=== PATIENT | female | born 1945 | race Caucasian/White ===

== ENCOUNTER 2021-08-16 15:28 | Inpatient (IN) | payer MEDICARE ==
[~2021-08-16] VITALS: Ht 162.6 cm; Wt 113.4 kg
[2021-08-16 15:29] VITALS: BP 115/46
[2021-08-16] MEDS ORDERED: ALLOPURINOL 10100 M1 PO (15:32)
[2021-08-16] MEDS ORDERED: ADVAIR 250-501 EACH INH (15:32)
[2021-08-16] MEDS ORDERED: FLONASE 0.05%50 MCG NASAL (15:33)
[2021-08-16] MEDS ORDERED: BUMETANIDE 1 MG1 M1 PO (15:33)
[2021-08-16] MEDS ORDERED: CLARITIN10 M2 PO (15:33)
[2021-08-16] MEDS ORDERED: CARVEDILOL12.5 MG PO (15:33)
[2021-08-16] MEDS ORDERED: COZAAR 25 MG TA25 M1 PO (15:34)
[2021-08-16] MEDS ORDERED: ED-SPAZ0.125 MG PO (15:34)
[2021-08-16] MEDS ORDERED: MIRTAZAPINE15 M2 PO (15:34)
[2021-08-16] MEDS ORDERED: NEURONTIN 400M400 M2 PO (15:34)
[2021-08-16] MEDS ORDERED: VITAMIN D310 MC2 PO (15:35)
[2021-08-16] MEDS ORDERED: PILOCARPINE HCL5 M1 PO (15:35)
[2021-08-16] MEDS ORDERED: VITAMIN B122500 MC1 PO (15:35)
[2021-08-16 16:05] LABS: INFLUENZA A ANTIGEN Negative (Negative); INFLUENZA B ANTIGEN Negative (Negative)
[2021-08-16 17:05] LABS: HEMATOCRIT 40.8 % (37.0-47.0); HEMOGLOBIN 13.6 gm/dL (12.0-15.0); MCH 27.1 pg (26.0-34.0); MCHC 33.3 g/dL (28.0-37.0); MCV 81.2 fL (80.0-100.0); MPV 7.4 fl. (7.2-11.1); NUCLEATED RBCS 0 /100WBC; PLATELET COUNT* 176 thou/uL (150-400); RBC 5.02 mil/uL (4.20-5.00); RDW-CV 15.5 % (10.5-14.5); WBC 13.3 thou/uL (4.0-11.0)
[2021-08-16 17:14] LABS: CALCIUM 8.6 mg/dL (8.5-10.1); CREATININE 1.9 mg/dL (0.6-1.3); POTASSIUM 3.4 mmol/L (3.5-5.1)
[2021-08-16 17:24] LABS: ALBUMIN 3.1 g/dL (3.4-5.0); TOTAL BILIRUBIN 0.9 mg/dL (<0.1-1.0); TOTAL PROTEIN 6.6 g/dL (6.4-8.2)
[2021-08-16 17:35] LABS: ABSOLUTE LYMPHOCYTES 0.7 thou/uL (0.8-5.3); ABSOLUTE MONOCYTES 0.4 thou/uL (0.0-1.2); ABSOLUTE NEUTROPHILS 12.2 thou/uL (1.6-8.1); PLATELET ESTIMATE ADEQUATE
[2021-08-16 18:11] LABS: URINE BLOOD NEGATIVE (Negative); URINE COLOR YELLOW; URINE GLUCOSE-RANDOM NEGATIVE (Negative); URINE KETONES TRACE (Negative); URINE LEUKOCYTES TRACE (Negative); URINE NITRITE NEGATIVE (Negative); URINE PROTEIN 1+ (Negative); URINE SPECIFIC GRAVITY 1.025 (1.005-1.030); URINE UROBILINOGEN 0.2 E.U./dl (0.2-1.0)
[2021-08-16 18:23] LABS: ICTOTEST (BILI CONFIRMATORY) Negative (Negative); URINE BILIRUBIN 1+ (Negative); URINE CLARITY CLOUDY
[2021-08-16 18:25] LABS: BACTERIA 1-9 Few /HPF (None Seen); CRYSTALS None Seen /LPF (None Seen); HYALINE CASTS 0-3 Few /LPF (None Seen); MUCUS 0-3 Light strn/LPF (None Seen); SQUAMOUS 4-10 Moderate /LPF (0-3); URINE RBC None Seen /HPF (0-2); URINE WBC 6-15 Few /HPF (0-5)
[2021-08-16 22:00] VITALS: BP 104/52
[2021-08-17] VITALS: BP 107/50
[2021-08-17 04:00] VITALS: BP 119/62
[2021-08-17 05:51] LABS: ABSOLUTE LYMPHOCYTES 0.5 thou/uL (0.8-5.3); ABSOLUTE MONOCYTES 0.2 thou/uL (0.0-1.2); ABSOLUTE NEUTROPHILS 8.9 thou/uL (1.6-8.1); BASOPHILS 0.1 %; HEMATOCRIT 39.6 % (37.0-47.0); HEMOGLOBIN 13.2 gm/dL (12.0-15.0); LYMPHOCYTES 5.2 %; MCHC 33.3 g/dL (28.0-37.0); MONOCYTES 1.9 %; MPV 7.9 fl. (7.2-11.1); NUCLEATED RBCS 0 /100WBC; PLATELET COUNT* 160 thou/uL (150-400); POLYS 92.8 %; RDW-CV 15.2 % (10.5-14.5); WBC 9.6 thou/uL (4.0-11.0)
[2021-08-17 06:00] LABS: CALCIUM 8.8 mg/dL (8.5-10.1); CREATININE 1.8 mg/dL (0.6-1.3); POTASSIUM 3.4 mmol/L (3.5-5.1)
[2021-08-17 08:25] VITALS: BP 142/58
[2021-08-17 12:00] VITALS: BP 132/74
--- NOTE | 2021-08-17 13:12 | 2DMMODE ---
[place] [address] 2 D/M-MODE ECHOCARDIOGRAM Name: SAMI JACINTO Room: [address] IN R#: [id number] Admission: 08/16/21 Attend Phys: Barrera Abdullahi, Discharge: Date of : 47 Date of Service: 08/17/21 1311 Report #: [id number] THIS REPORT FOR: cc: Bebo Wang MD, Tuongvan T. MD Holkins, John M. MD [facility] ~ APPROVED REPORT Study performed: 08/17/2021 11:03:56 EXAM: Comprehensive 2D, Doppler, and color-flow Echocardiogram Patient Location: In-Patient Room #: [employer] Status: routine BSA: 2.13 HR: 63 bpm BP: 142/58 mmHg Rhythm: NSR Other Information Study Quality: Good Indications Dyspnea 2D Dimensions IVSd: 11.17 (7-11mm) LVOT Diam: 18.77 (18-24mm) LVDd: 48.50 mm PWd: 10.45 (7-11mm) Ascending Ao: 39.68 (22-36mm) LVDs: 29.56 (25-40mm) Aortic Root: 30.58 mm Volumes Left Atrial Volume (Systole) LA ESV Index: 18.10 mL/m2 Aortic Valve AoV Peak Yang.: 1.94 m/s AO Peak Gr.: 15.11 mmHg LVOT Max P.12 mmHg AO Mean Gr.: 7.98 mmHg LVOT Mean P.78 mmHg LVOT Max V: 1.59 m/s AO V2 VTI: 42.28 cm LVOT Mean V: 0.98 m/s ROMI (VTI): 2.49 cm2 LVOT V1 VTI: 38.07 [place] [address] 2 D/M-MODE ECHOCARDIOGRAM Name: SAMI JACINTO Room: [address] IN .R.#: [id number] Admission: 08/16/21 Attend Phys: Barrera Abdullahi, Discharge: Date of : 47 Date of Service: 08/17/21 1311 Report #: [id number] Mitral Valve E/A Ratio: 0.76 MV Decel. Time: 279.71 ms MV E Max Yang.: 0.95 m/s MV PHT: 81.12 ms MVA (PHT): 2.71 cm2 TDI E/Lateral E': 13.57 E/Medial E': 11.88 Medial E' Yang.: 0.08 m/s Lateral E' Yang.: 0.07 m/s Pulmonary Valve PV Peak Yang.: 1.12 m/s PV Peak Gr.: 5.00 mmHg Left Ventricle The left ventricle is normal size. There is normal LV segmental wall motion. There is normal left ventricular wall thickness. Left ventricular systolic function is normal. The left ventricular ejection fraction is within the normal range. LVEF is 60-65%. Grade I - abnormal relaxation pattern. Right Ventricle The right ventricle is normal size. The right ventricular systolic function is normal. Atria The left atrium size is normal. The right atrium size is normal. Aortic Valve The aortic valve is normal in structure. Trace aortic regurgitation. There is no aortic valvular stenosis. Mitral Valve The mitral valve is normal in structure. There is no mitral valve regurgitation noted. No evidence of mitral valve stenosis. Tricuspid Valve The tricuspid valve is normal in structure. Trace tricuspid regurgitation. Unable to assess PA pressure. Pulmonic Valve The pulmonary valve is normal in structure. There is no [place]mon[place] [address] 2 D/M-MODE ECHOCARDIOGRAM Name: SAMI JACINTO Jens Room: [address] IN [facility]#: [id number] Admission: 08/16/21 Attend Phys: Barrera Abdullahi, Discharge: Date of : 47 Date of Service: 08/17/21 1311 Report #: [id number] Great Vessels The aortic root is normal in size. IVC is normal in size and collapses >50% with inspiration. Pericardium There is no pericardial effusion. <Conclusion> The left ventricle is normal size. There is normal left ventricular wall thickness. Left ventricular systolic function is normal. The left ventricular ejection fraction is within the normal range. LVEF is 60-65%. Grade I - abnormal relaxation pattern. The right ventricle is normal size. The left atrium size is normal. The aortic valve is normal in structure. Trace aortic regurgitation. There is no aortic valvular stenosis. The mitral valve is normal in structure. The tricuspid valve is normal in structure. IVC is normal in size and collapses >50% with inspiration. There is no pericardial effusion. There is normal LV segmental wall motion. <ELECTRONICALLY SIGNED> By: Robel Garibay MD, FACC 08/17/211310 10 10 Robel Garibay MD, FACC /INF
[2021-08-17 19:40] VITALS: BP 110/68
[2021-08-18 00:42] VITALS: BP 146/76
[2021-08-18 04:40] VITALS: BP 149/72
[2021-08-18 08:00] VITALS: BP 137/76
[2021-08-18 09:47] LABS: HEMATOCRIT 41.6 % (37.0-47.0); HEMOGLOBIN 13.5 gm/dL (12.0-15.0); MCH 26.8 pg (26.0-34.0); MCHC 32.5 g/dL (28.0-37.0); MCV 82.3 fL (80.0-100.0); MPV 7.8 fl. (7.2-11.1); RBC 5.05 mil/uL (4.20-5.00); RDW-CV 15.8 % (10.5-14.5); WBC 9.5 thou/uL (4.0-11.0)
[2021-08-18 10:19] LABS: ALBUMIN 2.8 g/dL (3.4-5.0); CALCIUM 8.8 mg/dL (8.5-10.1); CREATININE 1.8 mg/dL (0.6-1.3); MAGNESIUM 2.4 mg/dL (1.8-2.4); PHOSPHORUS* 4.4 mg/dL (2.5-4.9); POTASSIUM 3.5 mmol/L (3.5-5.1); TOTAL BILIRUBIN 0.4 mg/dL (<0.1-1.0); TOTAL PROTEIN 6.8 g/dL (6.4-8.2)
[2021-08-18 11:56] VITALS: BP 141/68
[2021-08-18 12:10] LABS: HEMATOCRIT 40.8 % (37.0-47.0); HEMOGLOBIN 13.5 gm/dL (12.0-15.0); MCH 27.1 pg (26.0-34.0); MCHC 33.1 g/dL (28.0-37.0); MCV 81.9 fL (80.0-100.0); MPV 8.2 fl. (7.2-11.1); NUCLEATED RBCS 0 /100WBC; PLATELET COUNT* 217 thou/uL (150-400); RBC 4.99 mil/uL (4.20-5.00); RDW-CV 15.6 % (10.5-14.5); WBC 9.6 thou/uL (4.0-11.0)
[2021-08-18 12:45] LABS: ABSOLUTE LYMPHOCYTES 0.3 thou/uL (0.8-5.3); ABSOLUTE MONOCYTES 0.2 thou/uL (0.0-1.2); ABSOLUTE NEUTROPHILS 9.1 thou/uL (1.6-8.1); PLATELET ESTIMATE ADEQUATE
[2021-08-18 15:56] VITALS: BP 136/59
[2021-08-18 20:00] VITALS: BP 160/85
[2021-08-19] VITALS: BP 152/73
[2021-08-19 04:00] VITALS: BP 162/72
[2021-08-19 08:01] VITALS: BP 141/69
[2021-08-19] MEDS ORDERED: MUCUS RLF DM E1 EACH PO (11:04)
[2021-08-19] MEDS ORDERED: DECADRON6 MG PO (11:04)
[2021-08-19] MEDS ORDERED: TESSALON PERLE100 MG PO (11:04)
[2021-08-19 11:10] VITALS: BP 128/55; BP 98/46
[2021-08-19 12:48] VITALS: BP 128/55
--- NOTE | 2021-08-20 22:53 | CON ---
[address] [address] CONSULTATION Name: SAMI JACINTO Jens Room: [address] IN M.R.#: [id number] Admission: 08/16/21 Attend Phys: Barrera Abdullahi MD Discharge: 08/19/21 Date of : 47 Report #: [id number] THIS REPORT FOR: cc: Bebo Wang MD, Tuongvan T. MD Pervez, Adeel MD ~ DATE OF CONSULTATION: 08/17/2021 CONSULT HAS BEEN REQUESTED BY: Eder Karimi DO. INDICATION FOR CONSULTATION: COVID-19. HISTORY OF PRESENT ILLNESS: This is a 76-year-old female. Past medical history include a history of obstructive sleep apnea. She is on a CPAP at home and has a history of morbid obesity. The patient also has chronic renal failure. She states that her creatinine is 1.8. However, I do not have documentation of this. She also does have bronchial asthma. The patient is vaccinated with 2 doses of COVID-19 vaccine several months ago. She is still admitted here with COVID. Recently, she has received prednisone in addition to Tessalon Perles and doxycycline as an outpatient. The patient; however, had increasing shortness of breath as well as a dry cough and fever; therefore, eventually came to our hospital's Emergency Room. She does report having had nasal discharge recently. No sore throat. She has swelling of lower extremities, but does not report that this has changed recently. She has had some sleep disturbances and daytime sleepiness. This is not significantly different compared with her baseline. REVIEW OF SYSTEMS: Negative for 12 points except as mentioned above. PAST MEDICAL HISTORY: Morbid obesity, body mass index 43. Obstructive sleep apnea, on a CPAP at home long-term. Bronchial asthma, takes Advair and albuterol at home. Chronic renal insufficiency. The patient states that her creatinine at baseline is 1.8, which is the creatinine now as well. I do not however have documentation of this. Heart murmur. PAST SURGICAL HISTORY: Tonsillectomy, deviated septum surgery, UPPP for sleep apnea, cholecystectomy. The patient has just had an echocardiogram performed shows a left ventricular ejection fraction of 60-65%. Pulmonary artery systolic is not elevated. SOCIAL HISTORY: Lifetime nonsmoker. No known history of heavy alcohol use [place] [address] CONSULTATION Name: MAGGYSAMI WILSON Room: [address]#: [id number] Admission: 08/16/21 Attend Phys: Barrera Abdullahi MD Discharge: 08/19/21 Date of : 47 Report #: [id number] CURRENT MEDICATIONS: List in Submittable reviewed. HOME MEDICATIONS: List in [employer] reviewed. Also, see discussion above. ALLERGIES: THE LIST IN [place] IS REVIEWED. I AM CERTAIN IF THE PATIENT IN FACT IS ALLERGIC TO ALL OF THESE MEDICATIONS, FOR EXAMPLE TETRACYCLINE IS MENTIONED AN ALLERGY; HOWEVER, THE PATIENT RECENTLY REPORTS HAVING RECEIVED DOXYCYCLINE. SHE IS ALSO REPORTED TO HAVE HAD AN ALLERGY TO PENICILLIN AND TO ERYTHROMYCIN AND REPORTED TO HAVE HAD AN ADVERSE REACTION TO EPINEPHRINE. PHYSICAL EXAMINATION: GENERAL: She is alert, awake and oriented. She did appear to have shortness of breath at rest. She is constantly coughing while I was talking to her and therefore had difficulty talking in full sentences. VITAL SIGNS: She is; however, saturating 91%. She is not on supplemental oxygen. Has a pulse of 70 and a blood pressure of 132/74. The respiratory rate was around 18-19. She is afebrile with a temperature of 36.3. HEENT: Head is normocephalic and atraumatic. NECK: Does not show raised JVP. CHEST: Breath sounds are bilaterally equal, decreased, expirations are prolonged. HEART: Regular. There is no murmur. ABDOMEN: Soft and nontender. EXTREMITIES: Lower extremities, 1+ edema bilaterally. SKIN: Dry and intact. NEUROLOGIC: No focal deficit. LABORATORY DATA: The patient's chest x-ray done yesterday showed bilateral infiltrate consistent with COVID-19 is reviewed. V/Q scan performed today is low probability. Lab work in [facility] reviewed. ASSESSMENT AND PLAN: 1. COVID-19. She is currently ordered dexamethasone at 10 mg b.i.d. While for COVID alone, I may have to consider cutting back the dose of dexamethasone. The patient does appear to have a component of bronchospasm as well. Therefore, for now, it appears reasonable to continue the current dose. If she improves, then I would have a low threshold of tapering dexamethasone. Recommend starting remdesivir. Note that in patients who are not on supplemental oxygen, but admitted to the hospital, there is significant evidence in the literature of reduction in length of stay with remdesivir. Also, the patient is at a fairly high risk for progression due to the extensive infiltrates seen on the chest x-ray as well as her comorbid conditions. Follow LFTs while on remdesivir, also follow creatinine. 2. Obstructive sleep apnea, on CPAP long-term. The patient instructed to not [address] [place] [address] CONSULTATION Name: SAMI JACINTO Room: [address]#: [id number] Admission: 08/16/21 Attend Phys: Barrera Abdullahi MD Discharge: 08/19/21 Date of : 47 Report #: [id number] sleep supine. 3. Asthma exacerbation, dexamethasone at 10 b.i.d. as above, also on DuoNebs and I agree with the same. We will order an insulin sliding scale as I would expect an increase in glucoses. 4. Pulmonary infiltrates. Note, the patient received doxycycline as an outpatient recently. I agree with Levaquin as currently prescribed. There is a reported history of ALLERGY TO PENICILLIN; however, as above, it is not fully apparent to me whether this information is correct. Recommend obtaining a sputum for culture and nasal swab for methicillin-resistant Staphylococcus aureus. 5. Chronic renal insufficiency/fluid and electrolytes. The patient is on Bumex. She is also on 50 mL of normal saline. Overall, she appears to be mildly fluid overloaded. The patient states her creatinine is 1.8, which is the creatinine now. I do not have documentation of this though. For now, I elected to discontinue saline, continued with Bumex. Recommend following fluid status as well as creatinine and adjusting as indicated. 6. Edema of lower extremity. V/Q scan is low probability. I recommend obtaining venous Dopplers as well. 7. Rule out urinary tract obstruction. Recommend obtaining a renal ultrasound. 8. Deep venous thrombosis prophylaxis, Lovenox. 9. Gastrointestinal prophylaxis, Protonix. 10. Clostridium difficile prophylaxis, Lactinex. 11. Hypokalemia. I ordered 40 of potassium chloride. Recommend following potassium level, also added a magnesium to this morning's labs, which is normal. Thanks for this consultation. <ELECTRONICALLY SIGNED> By: Sahil Robles MD 08/20/21 2253 1817 2019Sahil Robles MD /nt
== END 2021-08-19 16:20 | disposition home health service (06) | DRG 177 ==
LOC: M.ERS 15:28 → M.TBA-ER 17:38 → M.ORTHSURG 17:38
PROVIDERS: Internal Medicine; Internal Medicine Critical Care Medicine; Physician Assistant; ADMIT Internal Medicine; ATTEND Internal Medicine
PROC: 5A09357 Assistance with Respiratory Ventilation, Less than 24 Consecutive Hours, Continuous Positive Airway Pressure (ICD-10-PCS; principal; 2021-08-16)
PROC: 05HA33Z Insertion of Infusion Device into Left Brachial Vein, Percutaneous Approach (ICD-10-PCS; 2021-08-17)
PROC: 5A09457 Assistance with Respiratory Ventilation, 24-96 Consecutive Hours, Continuous Positive Airway Pressure (ICD-10-PCS; 2021-08-17)
PROC: XW033E5 Introduction of Remdesivir Anti-infective into Peripheral Vein, Percutaneous Approach, New Technology Group 5 (ICD-10-PCS; 2021-08-17)
DX: U07.1 COVID-19 (principal); I50.31 Acute diastolic (congestive) heart failure; J96.01 Acute respiratory failure with hypoxia; J12.82 Pneumonia due to coronavirus disease 2019; J45.901 Unspecified asthma with (acute) exacerbation; N18.4 Chronic kidney disease, stage 4 (severe); Z68.41 Body mass index [BMI] 40.0-44.9, adult; I13.0 Hypertensive heart and chronic kidney disease with heart failure and stage 1 through stage 4 chronic kidney disease, or unspecified chronic kidney disease; G47.33 Obstructive sleep apnea (adult) (pediatric); E66.01 Morbid (severe) obesity due to excess calories; E87.6 Hypokalemia; J32.9 Chronic sinusitis, unspecified; B96.89 Other specified bacterial agents as the cause of diseases classified elsewhere; J31.0 Chronic rhinitis; Z90.49 Acquired absence of other specified parts of digestive tract; Z88.6 Allergy status to analgesic agent; Z88.1 Allergy status to other antibiotic agents; Z88.0 Allergy status to penicillin; Z88.8 Allergy status to other drugs, medicaments and biological substances; Z82.49 Family history of ischemic heart disease and other diseases of the circulatory system